=== PATIENT | male | born 1955 | race Caucasian/White ===

== ENCOUNTER → 2025-07-01 | Outpatient (CLI) | payer MEDICARE, OTHER, SELFPAY ==
--- NOTE | 2025-07-01 14:56 | XR_ITS ---
EXAMINATION: Bilateral AP knees standing single view TECHNIQUE: AP standing bilateral knees single view Date and time: July 01, 2025, 1519 hours INDICATIONS: Bilateral knee pain beginning 3 months ago. FINDINGS: Moderate osteopenia Moderate narrowing medial joint space right knee Moderate medial joint space left knee No fracture IMPRESSION: Moderate narrowing medial joint space right knee
--- NOTE | 2025-07-01 14:56 | XR_ITS ---
EXAMINATION: Ankle, left 3 views. Technique: Ankle AP, oblique, lateral 3 views Date and time of exam: July 01, 2025, 1515 hours INDICATIONS: Right ankle swelling beginning 3 months ago FINDINGS: Mild narrowing tibiotalar joint No fracture or dislocation Tiny plantar posterior bony calcaneal spurs IMPRESSION: Mild narrowing tibiotalar joint
--- NOTE | 2025-07-01 14:56 | XR_ITS ---
Examination: Knee, right, 3 views Technique: Knee AP, lateral, oblique 3 views Date and time of exam: July 01, 2025, 1515 hours INDICATIONS: Right knee swelling beginning 3 months ago. FINDINGS: Mild to moderate tricompartment osteoarthritis most severe narrowing medial joint space No fracture or dislocation IMPRESSION: Mild to moderate tricompartment osteoarthritis
== END | disposition home or self-care (01) ==
PROVIDERS: PCP Nurse Practitioner Family; Referring Provider Orthopaedic Surgery; Visit Provider Orthopaedic Surgery
DX: M25.872 Other specified joint disorders, left ankle and foot (principal); M17.11 Unilateral primary osteoarthritis, right knee; M25.861 Other specified joint disorders, right knee
CPT/HCPCS: 73560; 73562; 73564; 73565; 73610